=== PATIENT | male | born 1945 | race Caucasian/White ===

== ENCOUNTER → 2017-06-24 | Outpatient (CLI) | payer MEDICARE, BC ==
[~2017-06-24] MED LIST: ASPIRIN 32325 MG/TAB PO; ATACAND HCT 321 TAB PO; FERROUS SU325 MG/TAB PO; FOLIC ACID 40400 MCG PO; PAIN RELIEF AD200 MG PO; VITAMIN C500 MG PO
== END ==
LOC: COL.RAD 10:06
DX: M19.011 Primary osteoarthritis, right shoulder (principal)
CPT/HCPCS: J3301; Q9967

== ENCOUNTER 2017-10-28 12:05 | Inpatient (IN) | payer MEDICARE, BC ==
[~2017-10-28] VITALS: Ht 182.9 cm; Wt 99.0 kg
[2018-01-15] VITALS (11 sets, daily range): BP systolic 113–134; BP diastolic 56–76; PULSE 47–79; TEMP 97.8–98.5
[2018-01-15] MEDS ORDERED: LOPRESSOR 225 MG/TAB PO (02:39)
[2018-01-15] MEDS ORDERED: TOPROL XL 25MG25 MG PO (02:40)
[2018-01-15] MEDS ORDERED: AMBIEN 10MG10 MG PO (02:42)
[2018-01-15] MEDS ORDERED: ZETIA 10MG TAB10 MG PO (02:42)
[2018-01-15] MEDS ORDERED: SYNTHROID0.088 MG/T PO (02:43)
[2018-01-15] MEDS ORDERED: LIVALO4 MG PO (02:44)
[2018-01-15] MEDS ORDERED: FLOMAX 0.40.4 MG/CAP PO (02:45)
[2018-01-15] MEDS ORDERED: PRILOSEC 20MG20 MG PO (02:45)
[2018-01-16 00:40] VITALS: BP 132/64; PULSE 72; TEMP 98.6
[2018-01-16 03:45] VITALS: BP 130/74; PULSE 67; TEMP 98.3
[2018-01-16 07:06] VITALS: BP 129/65; PULSE 64; TEMP 98.2
== END 2018-01-16 12:12 | disposition home or self-care (01) | DRG 483 ==
LOC: JCC 01-15 05:10
PROVIDERS: Orthopaedic Surgery
PROC: 0RRJ0JZ Replacement of Right Shoulder Joint with Synthetic Substitute, Open Approach (ICD-10-PCS; principal; 2018-01-15 07:30)
DX: M19.011 Primary osteoarthritis, right shoulder (principal); Z23 Encounter for immunization; I10 Essential (primary) hypertension; I25.10 Atherosclerotic heart disease of native coronary artery without angina pectoris
CPT/HCPCS: A4314; A4315; C1713; C1776; J0690; J1100; J1170; J1885; J2405; J2704; J3010; J7120

== ENCOUNTER → 2018-01-06 | Outpatient (CLI) | payer MEDICARE, BC ==
[2018-01-06 17:57] LABS: HIV 1/2 Antibodies Non-Reactive; HIV-1p24 Antigen Non-Reactive
== END ==
LOC: COL.LAB 16:31
PROVIDERS: Orthopaedic Surgery
DX: Z01.812 Encounter for preprocedural laboratory examination (principal); M19.011 Primary osteoarthritis, right shoulder